=== PATIENT | male | born 1995 | race Caucasian/White ===

== ENCOUNTER 2016-07-05 14:01 | Observation (INO) | payer OTHER ==
[2016-07-05] MEDS ORDERED: levETIRAcetam IV 1,000 MG in SALINE 1 100ML.BAG IVPB STA (14:06)
[2016-07-05] MEDS ORDERED: DIAZEPAM 5 MG/ML 2 ML SYRINGE IVP STA (14:06)
[2016-07-05] MEDS ORDERED: SODIUM CHLORIDE 0.9% 500 ML IV STA (14:06)
[2016-07-05] MEDS ORDERED: LORazepam 2 MG/ML SYRINGE IV STA (14:06)
[2016-07-05] MEDS ORDERED: SODIUM CHLORIDE 0.9% 1,000 ML IV STA ×2 (14:06)
--- NOTE | 2016-07-05 14:08 | ED ---
General Adult HPI - General Stated complaint: SEIZURE Time Seen by Provider: 07/05/16 14:04 Source: RN notes reviewed, old records reviewed - History of Present Illness Initial comments: This is a 20-year-old male here for evaluation seizure. Patient currently at [facility] going through opiate, alcohol withdrawal. Patient states she's never had seizures from withdrawal before. Denies recent drug or alcohol abuse. No headache or fevers. Patient did hit the back of his head during initial seizure. Patient coming in emergency room and upon dropping [facility] patient has had second seizure - Related Data Home Medications Medication Instructions Recorded Confirmed Divalproex [Depakote] 500 mg PO BID 10/11/07/05/16 Acetaminophen [Tylenol 8 Hour] 650 mg PO Q4H PRN 07/05/16 07/05/16 Chlorpheniramine Maleate 4 mg PO QID PRN 07/05/16 07/05/16 [Chlor-Trimeton] Gabapentin [Neurontin] 100 mg PO TID 07/05/16 07/05/16 LORazepam [Ativan] 1 mg PO DIRECTED 07/05/16 07/05/16 Multivitamins, Thera [Multivitamin 1 tab PO DAILY 07/05/16 07/05/16 (formulary)] QUEtiapine [SEROquel] 25 mg PO QAM 07/05/16 07/05/16 QUEtiapine [SEROquel] 100 mg PO HS 07/05/16 07/05/16 Sulfamethox-Tmp 800-160Mg [Bactrim 1 tab PO Q12HR 07/05/16 07/05/16 DS 800-160 mg] traZODone HCL 50 - 150 mg PO HS PRN 07/05/16 07/05/16 Allergies Allergy/AdvReac Type Severity Reaction Status Date / Time haloperidol [From Haldol] Allergy Swelling Verified 07/05/16 14:32 haloperidol lactate Allergy Swelling Verified 07/05/16 14:32 [From Haldol] NSAIDS (Non-Steroidal Allergy Itching Verified 07/05/16 14:32 Anti-Inflamma propofol Allergy Unknown Verified 07/05/16 14:32 tetanus and diphtheria Allergy Unknown Verified 07/05/16 14:32 toxoids Childhood [tetanus & diphtheria toxoids] Review of Systems ROS Statement: Those systems with pertinent positive or pertinent negative responses have been documented in the HPI. ROS Other: All systems not noted in ROS Statement are negative. Past Medical History Additional Past Medical History / Comment(s): Back injury; Herniated discs History of Any Multi-Drug Resistant Organisms: None Reported Past Surgical History: No Surgical Hx Reported Past Psychological History: Anxiety, Bipolar, Depression Smoking Status: Current every day smoker Past Alcohol Use History: None Reported Past Drug Use History: None Reported General Exam General appearance: alert, in no apparent distress, anxious Head exam: Present: atraumatic, normocephalic, normal inspection Eye exam: Present: normal appearance, PERRL, EOMI. Absent: scleral icterus, conjunctival injection, periorbital swelling ENT exam: Present: normal exam, mucous membranes dry Neck exam: Present: normal inspection. Absent: tenderness, meningismus, lymphadenopathy Respiratory exam: Present: normal lung sounds bilaterally. Absent: respiratory distress, wheezes, rales, rhonchi, stridor Cardiovascular Exam: Present: normal rhythm, tachycardia, normal heart sounds. Absent: systolic murmur, diastolic murmur, rubs, gallop, clicks GI/Abdominal exam: Present: soft, normal bowel sounds. Absent: distended, tenderness, guarding, rebound, rigid Extremities exam: Present: normal inspection, full ROM, normal capillary refill. Absent: tenderness, pedal edema, joint swelling, calf tenderness Back exam: Present: normal inspection Neurological exam: Present: alert, oriented X3, CN II-XII intact Psychiatric exam: Present: normal affect, normal mood Skin exam: Present: warm, dry, intact, normal color. Absent: rash Course Vital Signs 07/05/16 07/05/16 07/05/16 14:03 14:47 15:32 Temperature 99.8 F H 99.1 F Pulse Rate 81 83 80 Respiratory 18 16 14 Rate Blood Pressure 150/82 145/63 122/63 O2 Sat by Pulse 100 100 100 Oximetry 07/05/16 07/05/16 07/05/16 15:41 16:05 16:26 Temperature 99.0 F Pulse Rate 91 91 72 Respiratory 14 14 Rate Blood Pressure 110/57 120/68 117/62 O2 Sat by Pulse 99 100 100 Oximetry EKG Findings - EKG Comments: EKG Findings:: KG shows normal sinus rhythm rate 87, IN 1:30, QRS 94, QTC 435 Medical Decision Making - Medical Decision Making 20 [place] for evaluation of seizures. Patient had a breakthrough seizure seizure-like review withdrawal related. Patient will be admitted for neurological evaluation, seizure control - Lab Data Result diagrams: 07/05/16 14:12 07/05/16 14:12 Lab Results 07/05/16 07/05/16 07/05/16 Range/Units 14:12 14:12 15:25 WBC 12.4 H (3.8-10.6) k/uL RBC 4.77 (4.30-5.90) m/uL Hgb 13.8 (13.0-17.5) gm/dL Hct 41.2 (39.0-53.0) % MCV 86.5 (80.0-100.0) fL MCH 28.9 (25.0-35.0) pg MCHC 33.4 (31.0-37.0) g/dL RDW 14.9 (11.5-15.5) % Plt Count 348 (150-450) k/uL Neutrophils % 70 % Lymphocytes % 22 % Monocytes % 5 % Eosinophils % 1 % Basophils % 1 % Neutrophils # 8.7 H (1.3-7.7) k/uL Lymphocytes # 2.8 (1.0-4.8) k/uL Monocytes # 0.6 (0-1.0) k/uL Eosinophils # 0.1 (0-0.7) k/uL Basophils # 0.1 (0-0.2) k/uL Sodium 141 (137-145) mmol/L Potassium 4.0 (3.5-5.1) mmol/L Chloride 103 (98-107) mmol/L Carbon Dioxide 27 (22-30) mmol/L Anion Gap 11 mmol/L BUN 9 (9-20) mg/dL Creatinine 0.84 (0.66-1.25) mg/dL Est GFR (MDRD) Af Amer >60 (>60 ml/min/1.73 sqM) Est GFR (MDRD) Non-Af >60 (>60 ml/min/1.73 sqM) Glucose 96 (74-99) mg/dL Calcium 9.9 (8.4-10.2) mg/dL Total Bilirubin 0.7 (0.2-1.3) mg/dL AST 29 (17-59) U/L ALT 26 (21-72) U/L Alkaline Phosphatase 66 (38-126) U/L Total Protein 7.4 (6.3-8.2) g/dL Albumin 4.6 (3.5-5.0) g/dL Salicylates <1.0 mg/dL Urine Opiates Screen Not Detected (NotDetected) Ur Oxycodone Screen Not Detected (NotDetected) Urine Methadone Screen Not Detected (NotDetected) Ur Propoxyphene Screen Not Detected (NotDetected) Acetaminophen <10.0 ug/mL Ur Barbiturates Screen Detected H (NotDetected) U Tricyclic Antidepress Not Detected (NotDetected) Ur Phencyclidine Scrn Not Detected (NotDetected) Ur Amphetamines Screen Not Detected (NotDetected) U Methamphetamines Scrn Not Detected (NotDetected) U Benzodiazepines Scrn Detected H (NotDetected) Urine Cocaine Screen Not Detected (NotDetected) U Marijuana (THC) Screen Detected H (NotDetected) Serum Alcohol <10 mg/dL - Radiology Data Radiology results: report reviewed (CT brain negative for acute disease), image reviewed Disposition Clinical Impression: New onset seizure, Drug withdrawal, Opiate addiction, Benzodiazepine abuse Disposition: ADMITTED IP TO THIS [facility] Condition: Fair
[2016-07-05 14:24] LABS: Basophils # (A) 0.1 k/uL (0-0.2); Basophils % (A) 1 %; CH 29.3; CHCM 33.9; Eosinophils # (A) 0.1 k/uL (0-0.7); Eosinophils % (A) 1 %; HCT 41.2 % (39.0-53.0); HDW 2.26; HGB 13.8 gm/dL (13.0-17.5); Luc # (Auto) 0.16; Luc % (Auto) 1; Lymphocytes # (A) 2.8 k/uL (1.0-4.8); Lymphocytes % (A) 22 %; MCH 28.9 pg (25.0-35.0); MCHC 33.4 g/dL (31.0-37.0); MCV 86.5 fL (80.0-100.0); Mean Platelet Volume 6.4; Monocytes # (A) 0.6 k/uL (0-1.0); Monocytes % (A) 5 %; Neutrophils # (A) 8.7 k/uL (1.3-7.7); Neutrophils % (A) 70 %; RBC 4.77 m/uL (4.30-5.90); RDW 14.9 % (11.5-15.5); WBC 12.4 k/uL (3.8-10.6); WBC (Perox) 12.42
[2016-07-05 14:34] LABS: ALT 26 U/L (21-72); AST 29 U/L (17-59); Acetaminophen <10.0 ug/mL; Alcohol <10 mg/dL; Alkaline Phosphatase 66 U/L (38-126); Anion Gap 11 mmol/L; Blood Urea Nitrogen 9 mg/dL (9-20); Calcium 9.9 mg/dL (8.4-10.2); Carbon Dioxide 27 mmol/L (22-30); Chloride 103 mmol/L (98-107); Glucose 96 mg/dL (74-99); Non-African American GFR(MDRD) >60 (>60 ml/min/1.73 sqM); Salicylate <1.0 mg/dL; Sodium 141 mmol/L (137-145); Total Bilirubin 0.7 mg/dL (0.2-1.3); Total Protein 7.4 g/dL (6.3-8.2)
--- NOTE | 2016-07-05 14:59 | CT ---
EXAMINATION TYPE: CT brain wo con DATE OF EXAM: 07/05/2016 2:40 PM COMPARISON: NONE HISTORY: Seizures today. History of seizures. CT DLP: 1225.00 mGycm Automated exposure control for dose reduction was used. FINDINGS: Ventricles and sulci appear normal. There is no mass effect nor midline shift. There is no sign of in tracranial hemorrhage. The calvarium is intact. IMPRESSION: Negative unenhanced head CT scan.
[2016-07-05] MEDS ORDERED: diphenhydrAMINE 50 MG/ML 1 ML VIAL IVP STA (15:47)
[2016-07-05] MEDS ORDERED: ORPHENADRINE 30 MG/ML 2 ML VIAL IVP STA (15:47)
[2016-07-05] MEDS ORDERED: SODIUM CHLORIDE 0.9% 1,000 ML IV ONE (15:49)
[2016-07-05] MEDS ORDERED: LORazepam 2 MG/ML SYRINGE IV PRN (15:51)
[2016-07-05] MEDS ORDERED: ACETAMINOPHEN TAB 325 MG TAB PO PRN (17:30)
[2016-07-05] MEDS ORDERED: CARISOPRODOL 350 MG TAB PO PRN (17:48)
[2016-07-05 18:10] VITALS: RESP 16
--- NOTE | 2016-07-05 18:24 | P.CNNES ---
History of Present Illness Consult date: 07/05/16 History of Present Illness: The patient is a 20-year-old right-handed white male who gives a history of seizures since age of 12. He states for the past week his had frequent seizures. He reports 12 seizures today. [facility] had a [facility] and hit his head. He was brought by EMS to [facility] emergency room where he had a second seizure. The patient was given a gram of Keppra and also had a CT of the brain in the ER. A CT of the brain was negative. When he to the floor the patient had episodes which was witnessed consisting of spitting from the mouth and generalized tremoring. Would last for 1 minute and he would wake up within 30 seconds alert and oriented this happened 3 times within 4 minutes. Time he would wake up alert immediately and also request pain medication. There was no oral trauma or pupillary change or incontinence. The patient is on Depakote 500 twice a day for bipolar disorder. The patient reports he gets his seizure medications from his primary care physician and that he has never seen a neurologist. states he does not drive. He also states he is aware of the [email or web address] law. He was advised that per [employer] law he cannot drive until spell free for 6 months. Review of Systems Eyes: denies blurred vision, denies pain Cardiovascular: Denies chest pain, Denies shortness of breath Neurological: Denies numbness, Denies weakness Psychiatric: Denies anxiety, Denies depression Past Medical History Past Medical History: Seizure Disorder Additional Past Medical History / Comment(s): Back injury; Herniated discs History of Any Multi-Drug Resistant Organisms: None Reported Past Surgical History: No Surgical Hx Reported Past Psychological History: Anxiety, Bipolar, Depression Smoking Status: Current every day smoker Past Alcohol Use History: None Reported Past Drug Use History: None Reported Medications and Allergies Home Medications Medication Instructions Recorded Confirmed Type Divalproex [Depakote] 500 mg PO BID 10/12/15 07/05/16 History Acetaminophen [Tylenol 8 Hour] 650 mg PO Q4H PRN 07/05/16 07/05/16 History Chlorpheniramine Maleate 4 mg PO QID PRN 07/05/16 07/05/16 History [Chlor-Trimeton] Gabapentin [Neurontin] 100 mg PO TID 07/05/16 07/05/16 History LORazepam [Ativan] 1 mg PO DIRECTED 07/05/16 07/05/16 History Multivitamins, Thera [Multivitamin 1 tab PO DAILY 07/05/16 07/05/16 History (formulary)] QUEtiapine [SEROquel] 25 mg PO QAM 07/05/16 07/05/16 History QUEtiapine [SEROquel] 100 mg PO HS 07/05/16 07/05/16 History Sulfamethox-Tmp 800-160Mg [Bactrim 1 tab PO Q12HR 07/05/16 07/05/16 History DS 800-160 mg] traZODone HCL 50 - 150 mg PO HS PRN 07/05/16 07/05/16 History Allergies Allergy/AdvReac Type Severity Reaction Status Date / Time haloperidol [From Haldol] Allergy Swelling Verified 07/05/16 14:32 haloperidol lactate Allergy Swelling Verified 07/05/16 14:32 [From Haldol] NSAIDS (Non-Steroidal Allergy Itching Verified 07/05/16 14:32 Anti-Inflamma propofol Allergy Unknown Verified 07/05/16 14:32 tetanus and diphtheria Allergy Unknown Verified 07/05/16 14:32 toxoids Childhood [tetanus & diphtheria toxoids] Physical Examination - Vital Signs Vital Signs: Vital Signs Temp Pulse Resp BP Pulse Ox 07/05/16 17:30 16 07/05/16 16:26 99.0 F 72 14 117/62 100 07/05/16 16:05 91 14 120/68 100 07/05/16 15:41 91 110/57 99 07/05/16 15:32 99.1 F 80 14 122/63 100 07/05/16 14:47 83 16 145/63 100 07/05/16 14:03 99.8 F H 81 18 150/82 100 Intake and Output 07/05/16 07/05/16 07/05/16 06:59 14:59 22:59 Output Total 1200 Balance -1200 Output: Urine 1200 Other: Weight 81.647 kg Patient Weight 07/06/16 06:59 Weight 81.647 kg - Constitutional General appearance: average body habitus - EENT EENT: PERRL, hearing intact, vision intact - Respiratory Respiratory: lungs clear - Cardiovascular Cardiovascular: regular rate, normal S1, normal S2 - Integumentary Integumentary: normal - Neurologic Cranial nerve examination: PERRL, EOMI, VFF, ptosis, face symmetric, tongue midline Speech examination: intact Detailed motor examination: grossly full strength in all extremities Detailed sensory examination: intact - Psychiatric Psychiatric: mood/affect appropriate Results - Laboratory Findings CBC and BMP: 07/05/16 14:12 07/05/16 14:12 Abnormal Lab Findings: Abnormal Labs 07/05/16 07/05/16 14:12 15:25 WBC 12.4 H Neutrophils # 8.7 H Ur Barbiturates Screen Detected H U Benzodiazepines Scrn Detected H U Marijuana (THC) Screen Detected H Assessment and Plan (1) Drug withdrawal Status: Acute Code(s): F19.939 - OTHER PSYCHOACTIVE SUBSTANCE USE, UNSP WITH WITHDRAWAL, UNSP (2) Seizure disorder Status: Acute Code(s): G40.909 - EPILEPSY, UNSP, NOT INTRACTABLE, WITHOUT STATUS EPILEPTICUS (3) Opiate addiction Status: Acute Code(s): F11.20 - OPIOID DEPENDENCE, UNCOMPLICATED (4) Benzodiazepine abuse Status: Acute Code(s): F13.10 - SEDATIVE, HYPNOTIC OR ANXIOLYTIC ABUSE, UNCOMPLICATED Plan: Patient is admitted to the hospital from [place] with breakthrough seizure. The patient gives a history of seizures since age of 12. He had a seizure at [place] and another one in the emergency room. He was loaded with Keppra. He is already on Depakote 500 twice a day. We will increase Keppra to 750 3 times a day and increase Depakote to 500 3 times a day obtain an EEG. He had a CT of the brain which was unremarkable. Patient denies any alcohol or drug use although he is admitted to the hospital for opiate and alcohol withdrawal and is currently at [facility] going through opiate narcotic withdrawal. Patient is requesting Valium in place of Ativan to control his breakthrough seizures.
[2016-07-05 18:27] VITALS: BP 141/75; PULSE 87; TEMP 99.1
[2016-07-05] MEDS ORDERED: QUEtiapine 100 MG TAB PO SCH (21:00)
[2016-07-05] MEDS ORDERED: levETIRAcetam IV 1,000 MG in SALINE 1 100ML.BAG IVPB SCH (21:00)
[2016-07-05] MEDS ORDERED: KETOROLAC 30 MG/ML 1 ML VIAL IVP SCH (21:00)
[2016-07-05] MEDS ORDERED: levETIRAcetam ORAL SOLN 500 MG/5 ML CUP PO SCH (22:00)
[2016-07-05] MEDS ORDERED: GABAPENTIN 100 MG CAP PO SCH (22:00)
[2016-07-05] MEDS ORDERED: DIVALPROEX 500 MG TABLET.DR PO SCH (22:00)
[2016-07-06] MEDS ORDERED: KETOROLAC 30 MG/ML 1 ML VIAL IVP SCH
[2016-07-06] MEDS ORDERED: PANTOPRAZOLE 40 MG TABLET PO SCH (07:30)
--- NOTE | 2016-07-06 08:55 | HP ---
DATE OF ADMISSION: Patient is a 20-year-old male who came in with complaints of seizure. The patient was in [place] for opiate overuse and drug rehabilitation program. Patient is also taking diazepam for his back. Patient has back issues since 14 years of age and since then patient has been taking diazepam and [place]. Patient apparently had seizures there that appeared to be tonic clonic activity. Although patient apparently was not confused and patient did not have any loss of bowel or bladder incontinence or tongue biting or any oral cavity injury. Patient says he had incontinence of bowel in [place]. Patient had a couple of seizures that were witnessed by neurologist, although patient was immediately awake. Patient does not have any postictal confusion. 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 Patient pupils are equally reacting to light. Patient does not have any ( ), excessive sweating or tachycardia consistent with any withdrawal symptoms from opiates at least or benzos. Patient is not an alcoholic. Patient had a CT of the head which was essentially within normal limits. EEG was ordered. Patient was started on Keppra and patient used Depakote for bipolar disorder which is being continued. Home medications include: Depakote, acetaminophen, ( ), gabapentin, lorazepam, multivitamins, Seroquel, Bactrim. I am not sure why patient uses Bactrim. I will have to find out from the patient. Haloperidol, NSAIDs, propofol, tetanus. REVIEW OF SYSTEMS: CONSTITUTIONAL: No fever, no malaise, no fatigue. HEENT: No recent visual problems or hearing problems. Denied any sore throat. CARDIOVASCULAR: No chest pain, orthopnea, PND, no palpitations, no syncope. PULMONARY: No shortness of breath, no cough, no hemoptysis. GASTROINTESTINAL: No diarrhea, no nausea, no vomiting, no abdominal pain. Normoactive bowel sounds. NEUROLOGICAL: As described in HPI. The patient denied any migraine headaches. HEMATOLOGICAL: Denies any bleeding or petechiae. GENITOURINARY: Denies any burning micturition, frequency, or urgency. MUSCULOSKELETAL/RHEUMATOLOGICAL: Denies any joint pain, swelling, or any muscle pain. ENDOCRINE: Denies any polyuria or polydipsia. The rest of the 14 point review of systems is negative. SOCIAL HISTORY: The patient does smoke every day. Patient has herniated disc and degenerative disc disease in the past. PHYSICAL EXAMINATION: Temperature 99.0, pulse of 72, respiratory rate of 14, blood pressure is 170/62. Saturating at 100% on room air. GENERAL: The patient is alert and oriented x3, not in any acute distress. Well developed, well nourished. HEENT: Pupils are round and equally reacting to light. EOMI. No scleral icterus. No conjunctival pallor. Normocephalic, atraumatic. No pharyngeal erythema. No thyromegaly. CARDIOVASCULAR: S1 and S2 present. No murmurs, rubs, or gallops. PULMONARY: Chest is clear to auscultation, no wheezing or crackles. ABDOMEN: Soft, nontender, nondistended, normoactive bowel sounds. No palpable organomegaly. MUSCULOSKELETAL: No joint swelling or deformity. EXTREMITIES: No cyanosis, clubbing, or pedal edema. NEUROLOGICAL: Gross neurological examination did not reveal any focal deficits. SKIN: No rashes. LABORATORY DATA: CBC and CMP are abnormal for elevated WBC count of 12,400 which is reactive response. Urine drug screen is positive for benzodiazepines, barbiturates and marijuana. ASSESSMENT AND PLAN: 1. 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 Patient will be monitored anyways. Patient was given as needed Ativan for seizures, which will be continued. Patient will be continued on Keppra. Patient will get EEG tomorrow. 2. Back pain and muscle spasms for which we will use cyclobenzaprine and soma. 3. 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 4. Bipolar disorder for which Depakote will be continued. 5. Drug abuse and nicotine abuse. Counseling was provided regarding that. 6. Leukocytosis, reactive in nature without any signs or symptoms of infection. Patient will be started on ketorolac and GI prophylaxis for back pain.
[2016-07-06] MEDS ORDERED: QUEtiapine 25 MG TAB PO SCH (09:00)
[2016-07-06] MEDS ORDERED: MULTIVITAMINS, THERA 1 EACH TAB PO SCH (12:00)
--- NOTE | 2016-07-06 15:11 | DS ---
DATE OF ADMISSION: 07/05/2016 DATE OF DISCHARGE: 07/05/2016 The patient left AGAINST MEDICAL ADVICE.
== END 2016-07-05 23:01 | disposition left against medical advice (07) ==
LOC: EC 14:01 → 4MS4W 15:51 → INTOOBSV 15:51 → 4MS4W 16:20
PROVIDERS: ADMIT Hospitalist; ATTEND Hospitalist
DX: F44.5 Conversion disorder with seizures or convulsions (principal); M54.5 Low back pain; M62.838 Other muscle spasm; G62.9 Polyneuropathy, unspecified; F31.9 Bipolar disorder, unspecified; F11.20 Opioid dependence, uncomplicated; F19.239 Other psychoactive substance dependence with withdrawal, unspecified; G40.919 Epilepsy, unspecified, intractable, without status epilepticus; F13.10 Sedative, hypnotic or anxiolytic abuse, uncomplicated; F17.200 Nicotine dependence, unspecified, uncomplicated; F41.9 Anxiety disorder, unspecified; Z88.7 Allergy status to serum and vaccine; Z88.8 Allergy status to other drugs, medicaments and biological substances; Z79.899 Other long term (current) drug therapy; Z71.51 Drug abuse counseling and surveillance of drug abuser
CPT/HCPCS: 99285; 36415; 93005; 80164; 80053; 85025; 80306; 83520 ×2; 80320; 70450; G0378; J2060; J1200; J2360; J1953